=== PATIENT | male | born 2000 | race Caucasian/White ===

== ENCOUNTER 2024-05-11 16:18 | Emergency (ER) | payer SELFPAY ==
[~2024-05-11] VITALS: Ht 172.7 cm; Wt 90.0 kg
[2024-05-11 16:25] VITALS: O2SAT 97
[2024-05-11] MEDS: KETOROLAC 30MG/ML VIAL IV STA (17:47)
[2024-05-11] MEDS: CEFAZOLIN 1000MG PREMIX 50 ML IV ONE (17:48)
[2024-05-11] MEDS: TETANUS, DIPHTHERIA, PERTUSSIS VAC/PF 0.5ML (>10YR OLD) IM ONE (17:52)
[2024-05-11 20:42] VITALS: BP 115/76; PULSE 73; RESP 13; TEMP 98.1
== END 2024-05-11 22:35 | disposition home or self-care (01) ==
LOC: ER 16:18
DX: S06.0X0A Concussion without loss of consciousness, initial encounter (principal); S01.01XA Laceration without foreign body of scalp, initial encounter; Y08.89XA Assault by other specified means, initial encounter; Y93.89 Activity, other specified; Y92.89 Other specified places as the place of occurrence of the external cause; Y99.8 Other external cause status
CPT/HCPCS: 70450; 72125; 90715; 12001; 90471; 96365; 96375; 99285; J0690; J1885; Z7610